=== PATIENT | male | born 1990 | race Caucasian/White ===

== ENCOUNTER 2017-01-20 21:50 | Emergency (ER) | payer BC ==
[~2017-01-20] VITALS: Ht 175.3 cm; Wt 84.0 kg
[~2017-01-20 21:50] MED LIST: NOHOMEMEDS
[2017-01-20] MEDS ORDERED: NARCAN4 MG NS (23:02)
[2017-01-20 23:12] VITALS: BP 169/91
== END 2017-01-20 23:43 | disposition home or self-care (01) ==
LOC: EME → EDBD 21:50 → EME 23:43
DX: T40.1X1A Poisoning by heroin, accidental (unintentional), initial encounter (principal); Z87.891 Personal history of nicotine dependence
CPT/HCPCS: 99281; 99284